=== PATIENT | male | born 1960 ===

== ENCOUNTER 2022-02-20 08:24 | Outpatient (CLI) | payer OTHER | END 2022-02-20 08:25 | disposition home or self-care (01) | LOC: RAD 08:24 | PROVIDERS: ATTEND Internal Medicine | DX: K21.9 Gastro-esophageal reflux disease without esophagitis (principal); R13.10 Dysphagia, unspecified; K44.9 Diaphragmatic hernia without obstruction or gangrene; K22.4 Dyskinesia of esophagus; K22.89 Other specified disease of esophagus | CPT/HCPCS: 74220 ==